=== PATIENT | male | born 1955 | race Caucasian/White ===

== ENCOUNTER → 2016-03-17 | Emergency (ER) | payer MEDICARE, MEDICAID ==
[2016-03-17 21:16] VITALS: BP 188/101
[2016-03-17 22:41] LABS: Hematocrit 43 % (42-52); Hemoglobin 14.7 g/dl (14.0-18.0); Mean Corpuscular HGB Conc 34 g/dl (31-36); Mean Corpuscular Hemoglobin 32 pg (27-31); Mean Corpuscular Volume 93 fL (80-94); Mean Platelet Volume 9 um3 (7.4-10.4); Red Blood Count 4.59 10^6/ul (4.0-5.4); Red Cell Distribution Width 13 % (10.5-15); White Blood Count 11.4 10^3/ul (3.5-10.8)
[2016-03-17 22:48] LABS: Add Diff/Slide Review? Slide Review Added; Comments Flag Yes
--- NOTE | 2016-03-17 23:23 | ED ---
Jo Rodríguez Anna, scribed for Nelly Valdes MD on 03/17/16 at 2212 . Upper Extremity Pain - HPI Summary HPI Summary: Patient is a 60 y/o male coming to [facility] presenting with constant edema of his upper right arm that began at 20:00 this evening. The patient demonstrates no apparent pain. Nothing appears to alleviate or exacerbate the pain. Patient sometimes sleeps on his arm in the morning. He has no hx of falls. Patients medical hx is significant for [place] disease, MR, and hemolytic anemia. Denies hx of clotting disorders. - History of Current Complaint Chief Complaint: EDExtremityUpper Stated Complaint: RIGHT ARM SWELLING Hx Obtained From: Family/B2B Managed Service Sales Exec - Accompanied by senior finance manager Mechanism Of Injury: Unknown Onset/Duration: Started Hours Ago, Still Present Timing: Constant Associated Signs & Symptoms: Positive: Swelling - Allergies/Home Medications Allergies/Adverse Reactions: Allergies Allergy/AdvReac Type Severity Reaction Status Date / Time Atorvastatin [From Lipitor] Allergy Hives Verified 03/17/16 21:10 PMH/Surg Hx/FS Hx/Imm Hx Endocrine/Hematology History: Reports: Hx Anemia - Hemolytic Respiratory History: Reports: Other Respiratory Problems/Disorders - 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 History: Reports: Other Problems/Disorders - spastic bladder Neurological History: Reports: Other Neuro Impairments/Disorders - MR Psychiatric History: Reports: Hx Anxiety, Other Psychiatric Issues/Disorders - Adjustment Disorder Infectious Disease History: No Infectious Disease History: Denies: Traveled Outside the [place] in Last 30 Days - Social History Occupation: Disabled Lives: With Family - With senior finance manager Alcohol Use: None Substance Use Type: Reports: None Smoking Status (MU): Never Smoked Tobacco - Additional Comments History Additional Comments: Gilbert's Disease Review of Systems Constitutional: Negative Eyes: Negative ENT: Negative Cardiovascular: Negative Respiratory: Negative Gastrointestinal: Negative Genitourinary: Negative Positive: Edema Skin: Negative Neurological: Negative Psychological: Normal All Other Systems Reviewed And Are Negative: Yes Physical Exam Triage Information Reviewed: Yes Vital Signs On Initial Exam: Initial Vitals Temp Pulse Resp BP Pulse Ox 96.3 F 110 22 188/101 99 03/17/16 21:10 03/17/16 21:10 03/17/16 21:10 03/17/16 21:10 03/17/16 21:10 Vital Signs Reviewed: Yes Appearance: Positive: Well-Appearing, No Pain Distress Skin: Positive: Warm, Skin Color Reflects Adequate Perfusion, Dry Eyes: Positive: EOMI, KELLY ENT: Positive: Pharynx normal, TMs normal Neck: Positive: Supple, Nontender Respiratory/Lung Sounds: Positive: Clear to Auscultation, Breath Sounds Present. Negative: Rales, Rhonchi, Wheezes Cardiovascular: Positive: RRR, Other - no gallops. Negative: Murmur, Rub Abdomen Description: Positive: Nontender, Soft, Other: - no rebound. Negative: Distended, Guarding Bowel Sounds: Positive: Present Musculoskeletal: Positive: Strength/ROM Intact, Edema Right - slight. Negative : Edema Left Neurological: Positive: Sensory/Motor Intact, Alert, Oriented to Person Place, Time, CN Intact II-III - Intact II-XII Psychiatric: Positive: Affect/Mood Appropriate Diagnostics - Vital Signs Vital Signs Temp Pulse Resp BP Pulse Ox 03/17/16 21:10 96.3 F 110 22 188/101 99 - Laboratory Lab Results: Lab Results 03/17/16 03/17/16 03/17/16 Range/Units 22:30 22:30 22:30 WBC 11.4 H (3.5-10.8) 10^3/ul RBC 4.59 (4.0-5.4) 10^6/ul Hgb 14.7 (14.0-18.0) g/dl Hct 43 (42-52) % MCV 93 (80-94) fL MCH 32 H (27-31) pg MCHC 34 (31-36) g/dl RDW 13 (10.5-15) % Plt Count 224 (150-450) 10^3/ul MPV 9 (7.4-10.4) um3 Neut % (Auto) 59.7 (38-83) % Lymph % (Auto) 29.6 (25-47) % Gregg % (Auto) 7.2 (1-9) % Eos % (Auto) 2.1 (0-6) % Baso % (Auto) 1.4 (0-2) % Absolute Neuts (auto) 6.8 (1.5-7.7) 10^3/ul Absolute Lymphs (auto) 3.4 (1.0-4.8) 10^3/ul Absolute Monos (auto) 0.8 (0-0.8) 10^3/ul Absolute Eos (auto) 0.2 (0-0.6) 10^3/ul Absolute Basos (auto) 0.2 (0-0.2) 10^3/ul Absolute Nucleated RBC 0.01 10^3/ul Nucleated RBC % 0.1 D-Dimer, Quantitative 374 H (Less Than 230) ng/mL Total Creatine Kinase 142 (10-223) U/L Result Diagrams: 03/17/16 22:30 Lab Statement: Any lab studies that have been ordered have been reviewed, and results considered in the medical decision making process. Re-Evaluation - Re-Evaluation First Eval Re-Evaluation Time: 23:16 Comment: Talked to senior finance manager. Course/Dx - Course Course Of Treatment: Pt has severe MR senior finance manager felt he would do well with blood draw xray and doppler but since it is past his bedtime he was unable to do the xray and the doppler. the ddimer which is a screening for a dvt came back slightly elevated although I have low suspicion for a dvt in that arm. He is moving /using the arm quite well and I am not able to appreciate that there is a noticeable swelling right now. In order to do the doppler he would need to be sedated and the senior finance manager is clear that he would need permission from the patients mother. He also thinks the patient would be able to tolerate the dopper if it weren't past his bedtime (it is 2320 right now). the plan for now is to discharge the pt and have them followup with his primary care doctor, return if symptoms worsen and potentially get the doppler tomorrow. - Diagnoses Provider Diagnoses: Arm swelling Discharge - Discharge Plan Condition: Stable Disposition: HOME Referrals: Eliseo Saenz MD [Primary Care Provider] - The documentation as recorded by the Jo garza Anna accurately reflects the service I personally performed and the decisions made by me, Nelly Valdes MD.
== END | disposition home or self-care (01) ==
LOC: ED 21:04
DX: M79.89 Other specified soft tissue disorders (principal); E80.4 Gilbert syndrome; D64.9 Anemia, unspecified
CPT/HCPCS: 36415; 82550; 85025; 85379; 99282

== ENCOUNTER 2016-04-25 20:02 | Emergency (ER) | payer MEDICARE, MEDICAID ==
[2016-04-25] MEDS ORDERED: Oseltamivir CAP* 75 MG PO ONE (21:26)
--- NOTE | 2016-04-25 23:36 | UC ---
Isaiah Rodríguez Billy, scribed for Anita Michaud DO on 04/25/16 at 205 . HPI Febrile Illness - HPI Summary HPI Summary: Patient is a 60 year-old male coming [place] [facility] [place] with temperature of 102.9F measured today by his caregiver. History not obtainable from the patient due to MR, patient is nonverbal. He was given Tylenol WAREHOUSE PRICING AND INVENTORY CLERK without improvement. Caregiver states that the patient has had a mild cough. Caregiver could tell pt was hot so took his temp. There had been no changes in behavior or any other symptoms. Caregiver states that the patient will hit his own head if he has a headache, but has not done so today. Caregiver denies any SOB, changes in bowel or bladder movements, or changes in appetite. The caregiver reports that he himself was diagnosed with influenza today. - History of Current Complaint Chief Complaint: UCRespiratory Time Seen by Provider: 04/25/16 20:40 Hx Obtained From: Family/Data Clerk Hx From Patient Unobtainable Due To: Other - MR Onset/Duration: Started Hours Ago Timing: Constant Temperature: 102.9 F Initial Severity: Moderate Current Severity: Moderate Aggravating Factors: Unknown Alleviating Factors: Nothing Associated Signs and Symptoms: Cough - Allergy/Home Medications Allergies/Adverse Reactions: Allergies Allergy/AdvReac Type Severity Reaction Status Date / Time Atorvastatin [From Lipitor] Allergy Hives Verified 04/11/16 06:33 PMH/Surg Hx/FS Hx/Imm Hx Endocrine/Hematology History: Reports: Hx Anemia - Hemolytic Denies: Hx Diabetes Cardiovascular History: Reports: Other Cardiovascular Problems/Disorders - CHOLESTEROL CONTROL WITH MEDS Denies: Hx Hypertension, Hx Pacemaker/ICD Respiratory History: Reports: Other Respiratory Problems/Disorders - 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 GI History: Reports: Other GI Disorders - CONSTIPATION CONTROL WITH MEDS/PRUNE JUICE DAILY History: Reports: Other Problems/Disorders - spastic bladder/with some incontinence Denies: Hx Renal Disease Sensory History: Reports: Hx Cataracts - SLIGHT Denies: Hx Contacts or Glasses, Hx Hearing Aid Opthamlomology History: Reports: Hx Cataracts - SLIGHT Denies: Hx Contacts or Glasses Neurological History: Reports: Other Neuro Impairments/Disorders - PROFOUND MENTAL RETARDATION, ADJUSTMENT DISORDER Psychiatric History: Reports: Hx Anxiety - OCCASIONAL, Hx Panic Disorder - SEVERE MR, Other Psychiatric Issues/Disorders - Adjustment Disorder Infectious Disease History: No Infectious Disease History: Denies: Traveled Outside the [place] in Last 30 Days - Family History Known Family History: Positive: Diabetes - Social History Alcohol Use: None Substance Use Type: Reports: None Smoking Status (MU): Never Smoked Tobacco Review of Systems Constitutional: Fever Skin: Negative Eyes: Negative ENT: Negative Respiratory: Cough Cardiovascular: Negative Gastrointestinal: Negative Genitourinary: Negative Motor: Negative Neurovascular: Negative Musculoskeletal: Negative Neurological: Negative Psychological: Negative All Other Systems Reviewed And Are Negative: Yes Physical Exam Triage Information Reviewed: Yes Completion Of Physical Exam Limited Due To: Patient is uncooperative with exam, Other - MR Appearance: No Pain Distress Vital Signs: Initial Vital Signs Temp 97.6 F 04/25/16 20:16 Pulse 120 04/25/16 20:16 Resp 22 04/25/16 20:16 Pulse Ox 98 04/25/16 20:16 Vital Signs Reviewed: Yes Eyes: Positive: Conjunctiva Clear. Negative: Discharge ENT: Positive: TMs normal, Other: - Pharynx not visualized as patient would not cooperate for the exam. Dental: Positive: Gross Decay/Caries @, Dental Fracture @ Neck: Positive: Supple, No Lymphadenopathy Respiratory: Positive: Lungs clear, Normal breath sounds, No respiratory distress, No accessory muscle use Cardiovascular: Positive: RRR, No Murmur Musculoskeletal Exam: Normal Neurological: Positive: Alert Psychological: Positive: Other: - Severe MR, would not sit still for exam, was not able to answer any questions. Skin Exam: Other - Diaphoretic. Course/Dx - Diagnoses Clinic Provider Diagnoses: influenza Discharge - Discharge Plan Condition: Stable Disposition: HOME Prescriptions: Oseltamivir Phosphate [Tamiflu] 75 mg PO BID #9 cap Patient Education Materials: Oseltamivir (By mouth), Influenza (ED) Referrals: Eliseo Saenz MD [Primary Care Provider] - (follow up in 3-5 days) The documentation as recorded by the Isaiah garza Billy accurately reflects the service I personally performed and the decisions made by , Anita Michaud DO.
== END 2016-04-25 21:52 | disposition home or self-care (01) ==
LOC: UCEAST 20:02
DX: J11.1 Influenza due to unidentified influenza virus with other respiratory manifestations (principal); Z88.8 Allergy status to other drugs, medicaments and biological substances
CPT/HCPCS: 87502; 99212; A9270-GY; G0463

== ENCOUNTER 2016-07-07 21:08 | Emergency (ER) | payer MEDICARE, MEDICAID ==
[2016-07-08] MEDS ORDERED: Acetaminophen ADULT LIQ* 650 MG/20.3 ML UDC PO ONE (00:13)
--- NOTE | 2016-07-08 00:17 | ED ---
HPI Febrile Illness - HPI Summary HPI Summary: Patient presents to ED with power engineer with a CC of fever at 102 this afternoon. He was seen by his PCP this morning and given amoxicillin for otitis media. He has been spiking fevers for 2 days. His power engineer brings him to the ED stating that he has already started the Amoxicillin this morning, but still ran a 102 fever this afternoon and was concerned that something else was happening. His PCP also diagnosed him with a URI. He is eating and drinking OK and having normal BM and has no strong history of UTI. - History of Current Complaint Chief Complaint: EDUpperRespComplaint Time Seen by Provider: 07/07/16 21:27 Hx Obtained From: Patient Onset/Duration: Started Days Ago Timing: Constant Initial Severity: Moderate Current Severity: Moderate Pain Intensity: 0 Pain Scale Used: 0-10 Numeric Aggravating Factors: Nothing Alleviating Factors: Nothing Associated Signs and Symptoms: Negative - Risk Factors Pseudomonas Risk Factors: Negative Serious Bacterial Infection Risk Factors: Negative - Allergy/Home Medications Allergies/Adverse Reactions: Allergies Allergy/AdvReac Type Severity Reaction Status Date / Time Atorvastatin [From Lipitor] Allergy Hives Verified 04/11/16 06:33 PMH/Surg Hx/FS Hx/Imm Hx Previously Healthy: Yes Endocrine/Hematology History: Reports: Hx Anemia - Hemolytic Denies: Hx Diabetes Cardiovascular History: Reports: Other Cardiovascular Problems/Disorders - CHOLESTEROL CONTROL WITH MEDS Denies: Hx Hypertension, Hx Pacemaker/ICD Respiratory History: Reports: Other Respiratory Problems/Disorders - 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 GI History: Reports: Other GI Disorders - CONSTIPATION CONTROL WITH MEDS/PRUNE JUICE DAILY History: Reports: Other Problems/Disorders - spastic bladder/with some incontinence Denies: Hx Renal Disease Sensory History: Reports: Hx Cataracts - SLIGHT Denies: Hx Contacts or Glasses, Hx Hearing Aid Opthamlomology History: Reports: Hx Cataracts - SLIGHT Denies: Hx Contacts or Glasses Neurological History: Reports: Other Neuro Impairments/Disorders - PROFOUND MENTAL RETARDATION, ADJUSTMENT DISORDER Psychiatric History: Reports: Hx Anxiety - OCCASIONAL, Hx Panic Disorder - SEVERE MR, Other Psychiatric Issues/Disorders - Adjustment Disorder - Immunization History Hx Pertussis Vaccination: No Immunizations Up to Date: Yes Infectious Disease History: No Infectious Disease History: Denies: Traveled Outside the [place] in Last 30 Days - Family History Known Family History: Positive: Diabetes - Social History Occupation: Unemployed Lives: With Family Alcohol Use: None Hx Substance Use: No Substance Use Type: Reports: None Hx Tobacco Use: No Smoking Status (MU): Never Smoked Tobacco Review of Systems Constitutional: Negative Eyes: Negative Respiratory: Negative Gastrointestinal: Negative Positive: no symptoms reported, see HPI Musculoskeletal: Negative Neurological: Negative All Other Systems Reviewed And Are Negative: Yes Physical Exam Triage Information Reviewed: Yes Vital Signs On Initial Exam: Initial Vitals Temp Pulse Resp BP Pulse Ox 97.4 F 97 20 147/80 100 07/07/16 21:11 07/07/16 21:11 07/07/16 21:11 07/07/16 21:11 07/07/16 21:11 Vital Signs Reviewed: Yes Appearance: Positive: Well-Appearing, Well-Nourished Skin: Positive: Warm, Skin Color Reflects Adequate Perfusion Head/Face: Positive: Normal Head/Face Inspection Eyes: Positive: Discharge - bilaterally Dental: Positive: Abscess @ Neck: Positive: No Lymphadenopathy Respiratory/Lung Sounds: Positive: Clear to Auscultation, Breath Sounds Present Cardiovascular: Positive: Normal, RRR, Pulses are Symmetrical in both Upper and Lower Extremities Musculoskeletal: Positive: Strength/ROM Intact Psychiatric: Positive: Normal AVPU Assessment: Alert Diagnostics - Vital Signs Vital Signs Temp Pulse Resp BP Pulse Ox 07/07/16 21:38 98.5 F 93 18 117/98 98 07/07/16 21:11 97.4 F 97 20 147/80 100 - Laboratory Lab Statement: Any lab studies that have been ordered have been reviewed, and results considered in the medical decision making process. Course/Dx - Course Course Of Treatment: PE normal. Chest xray read by Dr. Jackson in ED as normal. Will call if radiology reads different. Continue on Amoxicillin. If anything changes or worsening fever develops, come back to ED. - Febrile Illness Differential Diagnoses: Fever of Unknown Origin, Pneumonia, Other: - otitis media, UTI, URI - Diagnoses Provider Diagnoses: Fever Discharge - Discharge Plan Condition: Stable Disposition: HOME Patient Education Materials: Upper Respiratory Infection (ED) Referrals: Eliseo Saenz MD [Primary Care Provider] - Additional Instructions: Follow up with your PCP.
[2016-07-08 00:32] VITALS: BP 135/72
--- NOTE | 2016-07-08 07:33 | RAD ---
INDICATION: Chest pain. COMPARISON: Comparison is made with a prior chest x-ray study from May 03, 2011. TECHNIQUE: An AP view of the chest was obtained. FINDINGS: The heart is within normal limits in size. Mediastinal and hilar contours appear within normal limits. The lungs are underinflated. There is a small infiltrate at the right lung base. The lungs are otherwise clear. No pleural effusion is seen. IMPRESSION: UNDERINFLATED LUNGS, SMALL RIGHT BASILAR INFILTRATE.
== END 2016-07-08 00:29 | disposition home or self-care (01) ==
LOC: ED 21:08
DX: R50.9 Fever, unspecified (principal); D58.9 Hereditary hemolytic anemia, unspecified
CPT/HCPCS: 71010; 99282; A9270-GY

== ENCOUNTER 2016-07-20 16:45 | Inpatient (IN) | payer MEDICARE, MEDICAID ==
--- NOTE | 2016-07-20 18:42 | RAD ---
INDICATION: Fever COMPARISON: July 07, 2016 TECHNIQUE: An AP portable view obtained at 1818 hours is submitted. FINDINGS: Bones/Soft Tissues: There are no acute bony findings. Cardiomediastinal: The cardiomediastinal silhouette is normal. Lungs: There is mild hypoventilation with a right basilar infiltrate with mild worsening. Pleura: There are no significant pleural effusions. Other: None IMPRESSION: HYPOVENTILATION WITH SMALL RIGHT BASAL INFILTRATE WITH MILD WORSENING
[2016-07-20 19:01] LABS: Hematocrit 44 % (42-52); Hemoglobin 14.6 g/dl (14.0-18.0); Mean Corpuscular HGB Conc 34 g/dl (31-36); Mean Corpuscular Hemoglobin 31 pg (27-31); Mean Corpuscular Volume 93 fL (80-94); Red Blood Count 4.67 10^6/ul (4.0-5.4); Red Cell Distribution Width 12 % (10.5-15); White Blood Count 29.6 10^3/ul (3.5-10.8)
[2016-07-20 19:04] LABS: Comments Flag Yes
[2016-07-20 19:05] LABS: Add Diff/Slide Review? Slide Review Added
[2016-07-20 19:06] LABS: Albumin 4.1 g/dL (3.2-5.2); BUN/Creatinine Ratio 18.3 (8-20); C Reactive Protein 24.9 mg/L (< 5.00); Calcium 9.3 mg/dL (8.6-10.3); EGFR Non-African American 94.9 (>60); Globulin 3.1 g/dL (2-4); Potassium 4.1 mmol/L (3.5-5.0); Total Bilirubin 0.9 mg/dL (0.2-1.0); Total Protein 7.2 g/dL (6.4-8.9)
[2016-07-20 19:08] LABS: Troponin I 0.01 ng/mL (<0.04)
[2016-07-20] MEDS ORDERED: NS 0.9% 1000 ML* 1,000 ML IV ONE (20:02)
[2016-07-20] MEDS ORDERED: Levofloxacin 750 MG IVPREMIX(* 750 MG/150 ML BAG IVPB ONE (20:02)
[2016-07-20 20:42] LABS: Urine Bacteria Absent (Absent); Urine Bilirubin Negative (Negative); Urine Glucose Negative (Negative); Urine Nitrite Negative (Negative)
[2016-07-20] MEDS ORDERED: Ondansetron INJ* 2 MG/ML VIAL IV PRN (20:52)
[2016-07-20] MEDS ORDERED: Ibuprofen TAB* 200 MG PO PRN (21:10)
[2016-07-20] MEDS ORDERED: Artificial Tear OPHTH.OINT* 3.5 GM BOTH EYES PRN (21:10)
[2016-07-20] MEDS ORDERED: Acetaminophen TAB* 325 MG PO PRN (21:32)
--- NOTE | 2016-07-20 21:59 | ED ---
Bayron Rodríguez Aidan, scribed for James Walters MD on 07/20/16 at 1816 . HPI Febrile Illness - HPI Summary HPI Summary: 61 y/o male presents to the ED with a complaint of acute, moderate episodes of fever. He had a mild fever 3 days ago and 2 days ago. Additionally, this afternoon, he had a fever of 100.9. While in the shower, the patients foam rubber curer noticed him having tremors. Tylenol did not reduce his fever. Shortly after, his temperature was found to be just over 102. Since he has arrived in the ED, he has not had an elevated temperature. Associated symptoms include urinary incontinence. A urine test conducted yesterday did not indicate UTI. The patient is developmentally disabled. - History of Current Complaint Chief Complaint: EDGeneral Time Seen by Provider: 07/20/16 17:35 Hx Obtained From: Patient Onset/Duration: Started Days Ago, Resolved Time of Onset: 00:00 - No specific time mentioned, however, his fever today was first noticed around noon Timing: Intermittent, Lasting Hours Temperature: 102 F - highest Initial Severity: Moderate Current Severity: Mild Pain Intensity: 0 Pain Scale Used: 0-10 Numeric Aggravating Factors: Unknown Alleviating Factors: Other: - unknown Associated Signs and Symptoms: Other: - episode of tremors, urinary incontinence - Allergy/Home Medications Allergies/Adverse Reactions: Allergies Allergy/AdvReac Type Severity Reaction Status Date / Time Atorvastatin [From Lipitor] Allergy Hives Verified 07/20/16 17:46 PMH/Surg Hx/FS Hx/Imm Hx Endocrine/Hematology History: Reports: Hx Anemia - Hemolytic Denies: Hx Diabetes Cardiovascular History: Reports: Other Cardiovascular Problems/Disorders - CHOLESTEROL CONTROL WITH MEDS Denies: Hx Hypertension, Hx Pacemaker/ICD Respiratory History: Reports: Other Respiratory Problems/Disorders - 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 GI History: Reports: Other GI Disorders - CONSTIPATION CONTROL WITH MEDS/PRUNE JUICE DAILY History: Reports: Other Problems/Disorders - spastic bladder/with some incontinence Denies: Hx Renal Disease Sensory History: Reports: Hx Cataracts - SLIGHT Denies: Hx Contacts or Glasses, Hx Hearing Aid Opthamlomology History: Reports: Hx Cataracts - SLIGHT Denies: Hx Contacts or Glasses Neurological History: Reports: Other Neuro Impairments/Disorders - PROFOUND MENTAL RETARDATION, ADJUSTMENT DISORDER Psychiatric History: Reports: Hx Anxiety - OCCASIONAL, Hx Panic Disorder - SEVERE MR, Other Psychiatric Issues/Disorders - Adjustment Disorder Infectious Disease History: No Infectious Disease History: Denies: Traveled Outside the [place] in Last 30 Days - Family History Known Family History: Positive: Diabetes - Social History Occupation: Unemployed Lives: Assisted Living Alcohol Use: None Hx Substance Use: No Substance Use Type: Reports: None Hx Tobacco Use: No Smoking Status (MU): Never Smoked Tobacco Review of Systems Positive: Fever - 102 was highest reported temp today, the nurse also indicated a temperature reading of 101.4. Eyes: Negative ENT: Negative Cardiovascular: Negative Respiratory: Negative Gastrointestinal: Negative Positive: frequency. Negative: burning, dysuria, discharge, flank pain, hematuria, incontinence, pain, urgency Musculoskeletal: Negative Skin: Negative Neurological: Negative Psychological: Normal All Other Systems Reviewed And Are Negative: Yes Physical Exam Triage Information Reviewed: Yes Vital Signs On Initial Exam: Initial Vitals Temp Pulse Resp 98.3 F 114 16 07/20/16 16:47 07/20/16 16:47 07/20/16 16:47 Vital Signs Reviewed: Yes Appearance: Positive: Well-Appearing, No Pain Distress Skin: Positive: Warm, Skin Color Reflects Adequate Perfusion, Dry Head/Face: Positive: Normal Head/Face Inspection Eyes: Positive: Normal ENT: Positive: Normal ENT inspection Neck: Positive: Supple, Nontender, No Lymphadenopathy Respiratory/Lung Sounds: Positive: Clear to Auscultation, Breath Sounds Present Cardiovascular: Positive: RRR - [place] Coma Scale Coma Scale Total: 11 Diagnostics - Vital Signs Vital Signs Temp Pulse Resp BP Pulse Ox 07/20/16 17:37 100.0 F 99 16 129/71 99 07/20/16 16:47 98.3 F 114 16 - Laboratory Lab Results: Lab Results 07/20/16 07/20/16 07/20/16 Range/Units 18:45 18:45 18:45 WBC 29.6 H (3.5-10.8) 10^3/ul RBC 4.67 (4.0-5.4) 10^6/ul Hgb 14.6 (14.0-18.0) g/dl Hct 44 (42-52) % MCV 93 (80-94) fL MCH 31 (27-31) pg MCHC 34 (31-36) g/dl RDW 12 (10.5-15) % Plt Count Not Reportable Neut % (Auto) 87.4 H (38-83) % Lymph % (Auto) 8.2 L (25-47) % Pike % (Auto) 3.9 (1-9) % Eos % (Auto) 0.3 (0-6) % Baso % (Auto) 0.2 (0-2) % Absolute Neuts (auto) 25.9 H (1.5-7.7) 10^3/ul Absolute Lymphs (auto) 2.4 (1.0-4.8) 10^3/ul Absolute Monos (auto) 1.1 H (0-0.8) 10^3/ul Absolute Eos (auto) 0.1 (0-0.6) 10^3/ul Absolute Basos (auto) 0.1 (0-0.2) 10^3/ul Absolute Nucleated RBC 0 10^3/ul Nucleated RBC % 0 INR (Anticoag Therapy) 0.92 (0.89-1.11) APTT 28.6 (26.0-36.3) seconds Sodium 135 (133-145) mmol/L Potassium 4.1 (3.5-5.0) mmol/L Chloride 102 (101-111) mmol/L Carbon Dioxide 21 L (22-32) mmol/L Anion Gap 12 H (2-11) mmol/L BUN 15 (6-24) mg/dL Creatinine 0.82 (0.67-1.17) mg/dL Est GFR ( Amer) 122.0 (>60) Est GFR (Non-Af Amer) 94.9 (>60) BUN/Creatinine Ratio 18.3 (8-20) Glucose 114 H (70-100) mg/dL Lactic Acid (0.5-2.0) mmol/L Calcium 9.3 (8.6-10.3) mg/dL Total Bilirubin 0.90 (0.2-1.0) mg/dL AST 29 (13-39) U/L ALT 52 (7-52) U/L Alkaline Phosphatase 82 (34-104) U/L Troponin I 0.01 (<0.04) ng/mL C-Reactive Protein 24.90 H (< 5.00) mg/L Total Protein 7.2 (6.4-8.9) g/dL Albumin 4.1 (3.2-5.2) g/dL Globulin 3.1 (2-4) g/dL Albumin/Globulin Ratio 1.3 (1-3) Urine Color Urine Appearance Urine pH (5-9) Ur Specific [place] (1.010-1.030) Urine Protein (Negative) Urine Ketones (Negative) Urine Blood (Negative) Urine Nitrate (Negative) Urine Bilirubin (Negative) Urine Urobilinogen (Negative) Ur Leukocyte Esterase (Negative) Urine WBC (Auto) (Absent) Urine RBC (Auto) (Absent) Ur Squamous Epith Cells (Absent) Urine Bacteria (Absent) Urine Glucose (Negative) 07/20/16 07/20/16 Range/Units 20:16 20:16 WBC (3.5-10.8) 10^3/ul RBC (4.0-5.4) 10^6/ul Hgb (14.0-18.0) g/dl Hct (42-52) % MCV (80-94) fL MCH (27-31) pg MCHC (31-36) g/dl RDW (10.5-15) % Plt Count Neut % (Auto) (38-83) % Lymph % (Auto) (25-47) % Pike % (Auto) (1-9) % Eos % (Auto) (0-6) % Baso % (Auto) (0-2) % Absolute Neuts (auto) (1.5-7.7) 10^3/ul Absolute Lymphs (auto) (1.0-4.8) 10^3/ul Absolute Monos (auto) (0-0.8) 10^3/ul Absolute Eos (auto) (0-0.6) 10^3/ul Absolute Basos (auto) (0-0.2) 10^3/ul Absolute Nucleated RBC 10^3/ul Nucleated RBC % INR (Anticoag Therapy) (0.89-1.11) APTT (26.0-36.3) seconds Sodium (133-145) mmol/L Potassium (3.5-5.0) mmol/L Chloride (101-111) mmol/L Carbon Dioxide (22-32) mmol/L Anion Gap (2-11) mmol/L BUN (6-24) mg/dL Creatinine (0.67-1.17) mg/dL Est GFR ( Amer) (>60) Est GFR (Non-Af Amer) (>60) BUN/Creatinine Ratio (8-20) Glucose (70-100) mg/dL Lactic Acid 2.8 H* (0.5-2.0) mmol/L Calcium (8.6-10.3) mg/dL Total Bilirubin (0.2-1.0) mg/dL AST (13-39) U/L ALT (7-52) U/L Alkaline Phosphatase (34-104) U/L Troponin I (<0.04) ng/mL C-Reactive Protein (< 5.00) mg/L Total Protein (6.4-8.9) g/dL Albumin (3.2-5.2) g/dL Globulin (2-4) g/dL Albumin/Globulin Ratio (1-3) Urine Color Yellow Urine Appearance Clear Urine pH 6.0 (5-9) Ur Specific [place] 1.020 (1.010-1.030) Urine Protein Negative (Negative) Urine Ketones Negative (Negative) Urine Blood Negative (Negative) Urine Nitrate Negative (Negative) Urine Bilirubin Negative (Negative) Urine Urobilinogen Negative (Negative) Ur Leukocyte Esterase Trace H (Negative) Urine WBC (Auto) 2+(11-20/hpf) H (Absent) Urine RBC (Auto) Trace(0-2/hpf) (Absent) Ur Squamous Epith Cells Present H (Absent) Urine Bacteria Absent (Absent) Urine Glucose Negative (Negative) Result Diagrams: 07/20/16 18:45 07/20/16 18:45 Lab Statement: Any lab studies that have been ordered have been reviewed, and results considered in the medical decision making process. - Radiology CHEST X-RAY Xray Interpretation: Positive (See Comments) - IMPRESSION: HYPOVENTILATION WITH SMALL RIGHT BASAL INFILTRATE Radiology Interpretation Completed By: Radiologist Course/Dx - Course Course Of Treatment: This is a 61 y/o male presenting with moderate episodes of fever. Chest x-ray indicated hypoventilation with small right basal infiltrate. The patient's lactic acid was 2.8. He was given fluids and antibiotics as he met sepsis criteria. - Diagnoses Provider Diagnoses: Pneumonia, Sepsis - Provider Notifications Discussed Care Of Patient With: Dr. Samayoa (Hospitalist) Time Discussed With Above Provider: 20:23 - Dr. Walters discussed the patient's care with the hospitalist. Discharge - Discharge Plan Condition: Stable Disposition: ADMITTED TO [facility] documentation as recorded by the Bayron garza Aidan accurately reflects the service I personally performed and the decisions made by me, James Walters MD.
--- NOTE | 2016-07-20 23:36 | HP ---
HISTORY AND PHYSICAL: DATE OF ADMISSION: 07/20/16 PRIMARY CARE PROVIDER: Eliseo Saenz MD PRINCIPAL DIAGNOSES: Fever and lethargy. HISTORY OF PRESENT ILLNESS: Mr. Arredondo is a 61-year-old male with a history of severe intellectual developmental delay and hyperlipidemia who presented to the emergency room with fever and lethargy. The patient's caregiver states that this past , he was noted to be very incontinent of urine, which is common for him overnight, but not for much during the day. He was at his day program and they noted that he had taken very frequent numerous trips to the bathroom. There was concern for UTI and therefore on 07/19/16, he was seen by his PCP and an urinalysis was sent. He felt the urinalysis was fine and he was sent back home. The patient's caregiver states that 2 nights ago, he was up all night long and since has been more sleepy. He does note that today, the patient initially had a normal temperature upon awakening; however, this afternoon he was incontinent of urine, which again is slightly abnormal and he required getting cleaned up. At that time, the patient was noted to be slightly shaky. His temperature got up to almost 103 degrees Fahrenheit. The patient was recently being treated for an ear infection with amoxicillin. His last dose was on 07/19/16. The patient's caregiver has noted that he has had a slight cough though no mucous production. His caregiver denies any diarrhea, skin issues, or sinus type symptoms. PAST MEDICAL HISTORY: 1. Hyperlipidemia. 2. Severe intellectual developmental delay. 3. Incontinence. PAST SURGICAL HISTORY: None. MEDICATIONS: 1. Tylenol 325 mg 1 to 2 tabs p.o. q.6 hours p.r.n. pain or fever. 2. Ibuprofen 400 mg p.o. q.6 hours p.r.n. pain or fever. 3. Hydrocortisone cream apply topically daily p.r.n. eczema. 4. CeraVe cream apply topically twice daily. 5. Chlorhexidine mouthwash swish and spit twice daily. 6. Bacitracin 1 application topical daily p.r.n. skin irritation. 7. Lacri-Lube 1 application both eyes q.2 hours p.r.n. dryness. 8. Multivitamin 1 tab p.o. daily. 9. MOM 3 tablespoons p.o. if no bowel movement in 3 days. 10. Robitussin 2 teaspoon p.o. q.4 hours p.r.n. cough. 11. MiraLAX one-half cap p.o. q.4 to 8 hours. 12. Risperdal 1 mg p.o. q.a.m. 13. Temazepam before cutting nails, and dental and eye appointment. 14. Simvastatin 50 mg p.o. at bedtime. 15. Risperdal 2 mg p.o. at bedtime. ALLERGIES: LIPITOR. FAMILY HISTORY: Unobtainable from the patient as he is nonverbal. SOCIAL HISTORY: The patient is reportedly a nonsmoker. He does not drink alcohol. He lives with Joshua Roberson, who is his personal injury litigation paralegal. REVIEW OF SYSTEMS: Unobtainable from the patient though pertinent positives and negatives are as per HPI, which is obtained from the patient's caregiver. PHYSICAL EXAMINATION GENERAL: The patient is a well-developed, obese, middle-aged male, lying in a stretcher, sleeping, does not arouse except with significant stimulation (i.e., attempting to role him over to inspect the skin of his abdomen). VITAL SIGNS: Blood pressure 126/65, pulse 103, respirations 20, temp 101, and O2 sat 98% on room air. HEENT: The patient does not open his eyes for me though I am able to lift the right eyelid and see that his extraocular muscles are intact and that his right pupil is round. The left eyelid unable to lift due to patient's position. Oropharynx: The patient does not cooperate with this exam; however, I am able to note that his oral mucosa is moist. NECK: There is no submandibular, cervical, or supraclavicular adenopathy. Thyroid is not enlarged. No thyroid nodules are noted. Pulmonary: Lungs are clear to auscultation bilaterally. CARDIAC: Normal S1, S2. Heart rate is mildly tachycardic, but there are no murmurs. ABDOMEN: Bowel sounds are present. Abdomen is soft, nontender, and nondistended. MUSCULOSKELETAL: The patient moves himself in bed. It appears that all 4 extremities move symmetrically. NEUROLOGIC: Exam is unable to be performed as the patient do not cooperate. SKIN: Warm. It is dry. I do not appreciate any rashes. PSYCH: Exam is unable to be performed due to the patient not cooperating. DIAGNOSTIC STUDIES/LAB DATA: WBC 29.6, hemoglobin 14.6, hematocrit 44, and platelet count not reportable as platelets clumped. INR 0.92. Sodium 135, potassium 4.1, chloride 102, CO2 21, BUN 15, creatinine 0.82, glucose 114, lactic acid 2.8, and calcium 9.3. Bilirubin 0.9. AST 29, ALT 52, and alk phos 82. Troponin 0.01. CRP 24.9. Albumin 4.1. Urinalysis from 07/20/16 revealed specific gravity of 1.020, negative nitrite, trace leukocyte esterase, 2+ wbc, and absent bacteria. Urine culture from 07/19/16 shows greater than 100,000 colonies of E. coli. Chest x-ray reveals hypoventilation with small right basal infiltrate with mild worsening. ASSESSMENT AND PLAN: Mr. Arredondo is a 61-year-old male with severe intellectual developmental delay who is brought to the emergency room for fever and increased lethargy and found to have positive urine cultures from 07/19/16 and possible right basilar pneumonia. 1. Sepsis: The patient is septic by sepsis 2 criteria with leukocytosis, fever , and source of infection being either urinary tract infection or pneumonia. By sepsis 3 criteria; however, the patient does not meet for sepsis. The patient will be treated with Levaquin, which will cover both possible pneumonia and urinary tract infection. He will receive aggressive IV fluid hydration and his lactic acid, which is slightly elevated at 2.8, will be repeated. 2. Escherichia coli urinary tract infection: The patient's urine culture from 07/19/16 is growing greater than 100,000 colonies of E. coli. The patient has no previous urine cultures to determine appropriate antibiotics. He has received Levaquin in the emergency room and I will continue this as it will cover both urine and lung pathogens. 3. Possible right basilar pneumonia: I will go ahead and have urine Strep pneumoniae antigen and urine legionella antigen sent. We will attempt to obtain a sputum culture if he is able to cough up any mucus. The patient's caregiver does state that he has had an intermittent cough; however, it has been dry in nature. Again the patient will be on Levaquin for his urinary tract infection and this will also cover community-acquired pneumonia. 4. Hyperlipidemia: The patient will be maintained on his usual dose of simvastatin. 5. Intellectual developmental delay: The patient will continue with Risperdal he takes at home. 6. DVTs prophylaxis: According to the Adult Thrombosis Prophylaxis Risk Factor Assessment Guide, the patient has a total risk factor score of 3, making him high risk. He will be placed on heparin 5000 units subcutaneous q.8 hours. 7. Code status: Full. TIME SPENT: Sixty-five minutes was spent admitting this patient. CC: Dr. Saenz* [id number]/CPS #: [id number] CHRIS
[2016-07-20] MEDS: NS 0.9% 1000 ML* 1,000 ML IV SCH (23:41)
[2016-07-20] MEDS: Heparin VIAL(*) 5000 UNITS/ML VIAL (FIVE THOUSAND) SUBCUT SCH (23:41)
[2016-07-21] MEDS: Heparin VIAL(*) 5000 UNITS/ML VIAL (FIVE THOUSAND) SUBCUT SCH ×3 (05:20→21:45)
[2016-07-21] MEDS: Multivitamins/Minerals TAB PO SCH (08:10)
[2016-07-21] MEDS: risperiDONE TAB* 1 MG PO SCH (08:11)
[2016-07-21] MEDS: NS 0.9% 1000 ML* 1,000 ML IV SCH ×2 (10:17→20:41)
[2016-07-21 10:50] LABS: Hematocrit 40 % (42-52); Hemoglobin 13.5 g/dl (14.0-18.0); Mean Corpuscular HGB Conc 34 g/dl (31-36); Mean Corpuscular Hemoglobin 32 pg (27-31); Mean Corpuscular Volume 92 fL (80-94); Mean Platelet Volume 10 um3 (7.4-10.4); Red Blood Count 4.28 10^6/ul (4.0-5.4); Red Cell Distribution Width 13 % (10.5-15); White Blood Count 25.2 10^3/ul (3.5-10.8)
[2016-07-21 10:56] LABS: Comments Flag Yes
[2016-07-21 10:57] LABS: Add Diff/Slide Review? Slide Review Added
[2016-07-21 11:12] LABS: BUN/Creatinine Ratio 14.9 (8-20); Calcium 8.7 mg/dL (8.6-10.3); EGFR African American 137.4 (>60); EGFR Non-African American 106.8 (>60); Potassium 3.5 mmol/L (3.5-5.0)
--- NOTE | 2016-07-21 13:28 | PN ---
Subjective Date of Service: 07/21/16 Interval History: HOSPITALIST PROGRESS NOTE Patient seen and examined at bedside. Non-verbal, cannot give any complaints. As per seat covers trimmer, he's doing better today, more active. Ate breakfast with good appetite. Family History: Unchanged from Admission Social History: Unchanged from Admission Past Medical History: Unchanged from Admission Objective Active Medications: Acetaminophen (Tylenol Tab*) 650 mg PO Q4H PRN PRN Reason: pain/fever Last Admin: 07/21/16 03:16 Dose: 650 mg Artificial Tears (Lacrilube Oint*) 1 applic BOTH EYES Q2H PRN PRN Reason: EYE IRRITATION Heparin Sodium (Porcine) (Heparin Vial(*)) 5,000 units SUBCUT Q8HR [facility] Last Admin: 07/21/16 05:20 Dose: 5,000 units Levofloxacin/Dextrose (Levaquin 500 Mg Ivpremix(*)) 500 mg in 100 mls @ 100 mls /hr IVPB Q24H [facility] Sodium Chloride (Ns 0.9% 1000 Ml*) 1,000 mls @ 100 mls/hr IV PER RATE [facility] Last Admin: 07/21/16 10:17 Dose: 100 mls/hr Ibuprofen (Advil Tab*) 400 mg PO Q6H PRN PRN Reason: PAIN Multivitamins/Minerals (Theragran/Minerals Tab*) 1 tab PO QAM [facility] Last Admin: 07/21/16 08:10 Dose: 1 tab Ondansetron HCl (Zofran Inj*) 4 mg IV Q6H PRN PRN Reason: NAUSEA Risperidone (Risperdal*) 1 mg PO QAM [facility] Last Admin: 07/21/16 08:11 Dose: 1 mg Risperidone (Risperdal*) 2 mg PO BEDTIME [facility] Simvastatin (Zocor(Nf)) 50 mg PO QPM [facility] Vital Signs 07/20/16 07/20/16 07/21/16 22:10 22:26 02:35 Temperature 99.8 F 99.8 F 100.3 F Pulse Rate 99 99 Respiratory 20 Rate Blood Pressure 139/68 139/68 (mmHg) O2 Sat by Pulse 96 96 Oximetry 07/21/16 07/21/16 07/21/16 07:39 11:03 11:39 Temperature 97.9 F Pulse Rate 90 91 Respiratory 17 Rate Blood Pressure 129/79 135/57 (mmHg) O2 Sat by Pulse 97 91 Oximetry Oxygen Devices in Use Now: None Appearance: Elderly male lying in bed in NAD. Eyes: No Scleral Icterus Ears/Nose/Mouth/Throat: Mucous Membranes Moist Neck: Trachea Midline Respiratory: Symmetrical Chest Expansion and Respiratory Effort, - - BS+ bilaterally coarse with no added sounds Cardiovascular: NL Sounds; No Murmurs; No JVD, RRR Abdominal: NL Sounds; No Tenderness; No Distention Extremities: No Edema Neurological: - - Alert and awake, non-verbal, ARCHER Lines/Tubes/Other Access: Clean, Dry and Intact Peripheral IV Nutrition: Taking PO's Result Diagrams: 07/21/16 10:28 07/21/16 10:28 Assess/Plan/Problems-Billing Assessment: Mr. Arredondo is a 61yo M with PMH of severe intellectual developmental delay, HLD , urinary incontinence, recent URI/otitis treated with antibiotics, who presented to ED with fever and lethargy, found to have an UTI and pneumonia. - Patient Problems (1) Sepsis Comment: - Met sepsis criteria on admission with fever and leukocytosis. - Source is pneumonia and UTI. (2) Community acquired bacterial pneumonia Comment: - Patient had a recent URI/Otitis and was treated with Amoxicillin. - CxR shows a right base infiltrate. - Legionella and pneumococcal Ag are negative. - Cultures are pending. - Continue Levofloxacin. (3) UTI (urinary tract infection) Comment: - UA suggestive of UTI. - Culture pending, but the one done as outpatient on 07/19 is growing E. coli > 100,000 colonies, sensitive to quinolones. - Continue Levofloxacin. (4) Hyperlipidemia Comment: - Continue Simvastatin. (5) Mental retardation Comment: - Continue risperidone. (6) DVT prophylaxis Comment: - SQ heparin. (7) Full code status Status and Disposition: Inpatient. Gypsum Roofer updated at bedside.
[2016-07-21] MEDS: CMCS Simvastatin TAB(NF) 20 MG TAB PO SCH (16:15)
[2016-07-21] MEDS: Levofloxacin 500 MG IVPREMIX(* 500 MG/100 ML BAG IVPB SCH (20:42)
[2016-07-21] MEDS: risperiDONE TAB* 2 MG PO SCH (20:45)
[2016-07-22] MEDS: Heparin VIAL(*) 5000 UNITS/ML VIAL (FIVE THOUSAND) SUBCUT SCH ×3 (05:30→21:22)
[2016-07-22 06:23] LABS: Hematocrit 39 % (42-52); Hemoglobin 13.2 g/dl (14.0-18.0); Mean Corpuscular HGB Conc 34 g/dl (31-36); Mean Corpuscular Hemoglobin 31 pg (27-31); Mean Corpuscular Volume 92 fL (80-94); Mean Platelet Volume 9 um3 (7.4-10.4); Red Cell Distribution Width 13 % (10.5-15); White Blood Count 16.2 10^3/ul (3.5-10.8)
[2016-07-22 06:37] LABS: BUN/Creatinine Ratio 15.4 (8-20); Calcium 8.5 mg/dL (8.6-10.3); EGFR African American 159.6 (>60); EGFR Non-African American 124.1 (>60); Potassium 3.6 mmol/L (3.5-5.0)
[2016-07-22] MEDS: Multivitamins/Minerals TAB PO SCH (07:29)
[2016-07-22] MEDS: risperiDONE TAB* 1 MG PO SCH (07:29)
--- NOTE | 2016-07-22 16:14 | PN ---
Subjective Date of Service: 07/22/16 Interval History: HOSPITALIST PROGRESS NOTE Patient seen and examined at bedside. Non-verbal, offers no complaints. As per line lead his appetite is better today and he seems to be closer to his baseline. Family History: Unchanged from Admission Social History: Unchanged from Admission Past Medical History: Unchanged from Admission Objective Active Medications: Acetaminophen (Tylenol Tab*) 650 mg PO Q4H PRN PRN Reason: pain/fever Last Admin: 07/21/16 03:16 Dose: 650 mg Artificial Tears (Lacrilube Oint*) 1 applic BOTH EYES Q2H PRN PRN Reason: EYE IRRITATION Heparin Sodium (Porcine) (Heparin Vial(*)) 5,000 units SUBCUT Q8HR [facility] Last Admin: 07/22/16 05:30 Dose: 5,000 units Levofloxacin/Dextrose (Levaquin 500 Mg Ivpremix(*)) 500 mg in 100 mls @ 100 mls /hr IVPB Q24H [facility] Last Admin: 07/21/16 20:42 Dose: 100 mls/hr Ibuprofen (Advil Tab*) 400 mg PO Q6H PRN PRN Reason: PAIN Multivitamins/Minerals (Theragran/Minerals Tab*) 1 tab PO QAM [facility] Last Admin: 07/22/16 07:29 Dose: 1 tab Ondansetron HCl (Zofran Inj*) 4 mg IV Q6H PRN PRN Reason: NAUSEA Risperidone (Risperdal*) 1 mg PO QAM [facility] Last Admin: 07/22/16 07:29 Dose: 1 mg Risperidone (Risperdal*) 2 mg PO BEDTIME [facility] Last Admin: 07/21/16 20:45 Dose: 2 mg Simvastatin (Zocor(Nf)) 50 mg PO QPM [facility] Last Admin: 07/21/16 16:15 Dose: 50 mg Vital Signs 07/21/16 07/21/16 07/21/16 19:46 19:58 23:22 Temperature 98.1 F 98.4 F Pulse Rate 89 82 Respiratory 17 18 16 Rate Blood Pressure 141/71 146/88 (mmHg) O2 Sat by Pulse 98 99 Oximetry Oxygen Devices in Use Now: None Appearance: Pleasant gentleman sitting up in bed in NAD. Eyes: No Scleral Icterus Ears/Nose/Mouth/Throat: Mucous Membranes Moist Neck: Trachea Midline Respiratory: Symmetrical Chest Expansion and Respiratory Effort, Clear to Auscultation Cardiovascular: NL Sounds; No Murmurs; No JVD, RRR Abdominal: NL Sounds; No Tenderness; No Distention, - - No CVA tenderness Neurological: - - Alert and awake Lines/Tubes/Other Access: Clean, Dry and Intact Peripheral IV Nutrition: Taking PO's Result Diagrams: 07/22/16 06:09 07/22/16 06:09 Assess/Plan/Problems-Billing Assessment: Mr. Arredondo is a 61yo M with PMH of severe intellectual developmental delay, HLD , urinary incontinence, recent URI/otitis treated with antibiotics, who presented to ED with fever and lethargy, found to have an UTI and pneumonia. - Patient Problems (1) Sepsis Comment: - Met sepsis criteria on admission with fever and leukocytosis. - Source is pneumonia and UTI. (2) Community acquired bacterial pneumonia Comment: - Patient had a recent URI/Otitis and was treated with Amoxicillin. - CxR shows a right base infiltrate. - Legionella and pneumococcal Ag are negative. - Blood cultures show no growth so far. - Continue Levofloxacin. (3) UTI (urinary tract infection) Comment: - UA suggestive of UTI. - Culture growing E. coli again, as the one done as outpatient on 07/19 grew E. coli >100,000 colonies, sensitive to quinolones. - Continue Levofloxacin. (4) Hyperlipidemia Comment: - Continue Simvastatin. (5) Mental retardation Comment: - Continue risperidone. (6) DVT prophylaxis Comment: - SQ heparin. (7) Full code status Status and Disposition: Inpatient. Furniture Manager updated at bedside. Anticipate d/c in AM if he continues to improve.
[2016-07-22] MEDS: CMCS Simvastatin TAB(NF) 20 MG TAB PO SCH (17:02)
[2016-07-22] MEDS: risperiDONE TAB* 2 MG PO SCH (19:53)
[2016-07-22] MEDS: Levofloxacin 500 MG IVPREMIX(* 500 MG/100 ML BAG IVPB SCH (19:53)
[2016-07-23] MEDS: Heparin VIAL(*) 5000 UNITS/ML VIAL (FIVE THOUSAND) SUBCUT SCH (05:43)
[2016-07-23] MEDS: risperiDONE TAB* 1 MG PO SCH (09:47)
[2016-07-23] MEDS: Multivitamins/Minerals TAB PO SCH (09:47)
[2016-07-23 10:14] VITALS: BP 118/66
--- NOTE | 2016-07-24 08:55 | DS ---
DISCHARGE SUMMARY: DATE OF ADMISSION: 07/20/16 DATE OF DISCHARGE: 07/23/16 PRIMARY CARE PROVIDER: Dr. Eliseo Saenz. DISCHARGE DIAGNOSES: 1. Sepsis, present on admission. 2. Community-acquired pneumonia. 3. Escherichia coli urinary tract infection. 4. Leukocytosis. 5. Mild lactic acidosis. SECONDARY DIAGNOSES: 1. Hyperlipidemia. 2. Severe intellectual developmental delay. MEDICATION LIST: 1. Acetaminophen 325 mg 1 to 2 tablets p.o. q.6 hours as needed for pain or fever. 2. Ibuprofen 400 mg p.o. q.6 hours p.r.n. pain. 3. Hydrocortisone ointment 1% topical daily as needed for skin irritation. 4. CeraVe lotion topical b.i.d. 5. Peridex mouthwash twice a day. 6. Bacitracin ointment topical to areas of skin infection daily as needed. 7. Artificial tears ointment apply to both eyes q.2 hours p.r.n. dryness and eye irritation. 8. Multivitamins 1 tablet p.o. daily. 9. Milk of magnesia 3 tablespoons p.o. if no bowel movement in 3 days. 10. Robitussin 2 teaspoons p.o. q.4 hours as needed for cough. 11. MiraLAX 0.5 half a capful of liquid q.48 hours. 12. Risperdal 1 mg p.o. q.a.m. 13. Temazepam 2 tablets p.o. before appointments. 14. Simvastatin 40 mg p.o. q.p.m. 15. Risperidone 2 mg p.o. at bedtime. New medication: Levofloxacin 500 mg p.o. daily for 7 more days. HOSPITAL COURSE: Mr. Arredondo is a 61-year-old male with a past medical history as stated above that was brought into the emergency room on July 20 with complaints of fever and lethargy. He had taken antibiotics as an outpatient for upper respiratory infection and ear infection, but his geoscience technician noticed that the patient was weaker, taking frequent trips to the bathroom. He was more lethargic and was noted to have fever. He had completed his treatment with amoxicillin, but his geoscience technician suspected he probably had another infection , so brought him to the emergency room. For more details about his presentation , I refer you to his history and physical. In the emergency room, the patient had a chest x-ray that showed a small right basal infiltrate. He was found to be febrile with a temperature of 101, tachycardic, with heart rate of 114, and his initial CBC showed a white cell count of 29,000. His urinalysis was also abnormal with trace LE and 2+ wbc's. As an outpatient, he had had urine culture that grew E. coli and the same grew during this admission. The patient was admitted under the impression of sepsis secondary to community- acquired pneumonia and urinary tract infection. He was started on levofloxacin and he had progressive improvement of his symptoms. He became afebrile. White cell count is trending down and his geoscience technician felt that he was close to his baseline, more active and alert. Blood cultures yielded no growth. Legionella and pneumococcal antigens were negative. The patient was felt to be medically stable to be discharged home today to follow up with his primary care provider on July 29. PHYSICAL EXAMINATION: Vital Signs: Temperature 98.2, heart rate is 80, respiratory rate is 16, oxygen saturation is 96% on room air, blood pressure 118 /66. General: The patient is a pleasant elderly male, sitting up in bed, in no acute distress. CVS: Normal S1, S2. Regular rate and rhythm. Chest: Breath sounds present bilaterally, with no added sounds. Abdomen is soft, nontender. There is no CVA tenderness. Extremities: No edema. Neuro: He is alert and awake, nonverbal. Able to move all 4 extremities. DIET: Low-fat diet. ACTIVITIES: As tolerated. DISPOSITION: To home. STATUS WHILE IN THE HOSPITAL: Inpatient. Please keep in mind this is a summarized version of this patient's hospital stay. If you need more information, please feel free to call me at [phone] or please obtain full medical records. TIME SPENT: Approximately 40 minutes was spent to complete this discharge. CC: Dr. Eliseo Saenz* [id number]/[facility] #: [id number] CHRIS
== END 2016-07-23 11:20 | disposition home or self-care (01) | DRG 871 ==
LOC: ED 16:45 → MED 20:52 → OBSVTOIN 07-21 13:19
PROVIDERS: ADMIT Hospitalist; ATTEND Internal Medicine
DX: A41.9 Sepsis, unspecified organism (principal); J15.9 Unspecified bacterial pneumonia; E87.2 Acidosis; N39.0 Urinary tract infection, site not specified; Z88.8 Allergy status to other drugs, medicaments and biological substances; F43.20 Adjustment disorder, unspecified; F41.0 Panic disorder [episodic paroxysmal anxiety]; Z83.3 Family history of diabetes mellitus; H26.9 Unspecified cataract; R40.2422 Glasgow coma scale score 9-12, at arrival to emergency department; F81.9 Developmental disorder of scholastic skills, unspecified; E78.5 Hyperlipidemia, unspecified; R32 Unspecified urinary incontinence; E66.9 Obesity, unspecified; B96.20 Unspecified Escherichia coli [E. coli] as the cause of diseases classified elsewhere; F79 Unspecified intellectual disabilities; Z68.29 Body mass index [BMI] 29.0-29.9, adult
CPT/HCPCS: 36415; 71010; 80048; 80053; 81003; 81015; 83605; 84484; 85025; 85610; 85730; 86140; 87040; 87077; 87086; 87186; 87502; 87641; 87899; A9270-GY; G0378; J1644; J1956